=== PATIENT | female | born 1955 | race Caucasian/White ===

== ENCOUNTER 2019-02-06 06:26 | Day surgery (SDC) | payer MEDICARE, OTHER, SELFPAY ==
--- NOTE | 2019-02-06 | TONS_PTH ---
PATIENT: AJ BARRON LOC: [facility] [place] U#:[id number] AGE/SX: 63/F ROOM: RE02/06/[address]: Dr. Stewart Carranza MD : 1955 BED: DIS: 02/06/2019 SPEC #: [id number] RECD: 02/06/19 09:09 STATUS: AMARI VIRK #: [id number] SAMMI: 02/06/19 00:[address]: Stewart Carranza DEPT: SURGICAL PATHOLOGY RECD BY: [place] ENTERED: 02/06/19 10:25 SP TYPE: TONSILS OTHR DR: No Primary Care Phys Tissues: Tonsil, NOS Procedures: Frozen Section (charge) Surgery Specimen Level III HEADER OPERATION: Tonsillectomy PRE-OP DIAGNOSIS: Benign neoplasm of tonsil; dysphagia TISSUE SUBMITTED: A - Left tonsil for FS at 0902, B - Right tonsil FROZEN SECTION DIAGNOSIS A. Left tonsil, tonsillectomy: Benign lymphoid hyperplasia. AM:michel 02/06/19 MICROSCOPIC DIAGNOSIS A. Left tonsil, tonsillectomy: Benign lymphoid follicular hyperplasia. Organisms consistent with actinomyces. See comment. B. Right tonsil, tonsillectomy: Benign lymphoid hyperplasia. AM:michel 02/10/19 COMMENT A. Flow cytometry analysis does not reveal immunophenotypic evidence of a lymphoproliferative disorder. The complete flow analysis is viewable in EMR. MICROSCOPIC DESCRIPTION Slides are reviewed. GROSS DESCRIPTION A - Received fresh for frozen section consultation labeled with the patient's name is a specimen designated left tonsil. The specimen consists of a tonsil measuring 3.4 x 1.6 x 1.8 cm and weighing 6.3 cm. The surgical margin is inked and the specimen is serially sectioned to reveal normal tonsillar architecture. No mass lesions are identified. A parts counter representative section is submitted for frozen section consultation in one block. The remainder of the specimen is submitted in its entirety in cassettes 2-4. / AM: 02/06/19 B - Received in fixative is one container labeled with the patient's name and designated right tonsil. The specimen consists of a tonsil that weighs 3.4 gm and measures 3 x 2 x 1.5 cm. The external surface is pink-martinez, smooth, glistening and somewhat lobulated. Focally it is hemorrhagic, granular and bears cautery artifact. Serial cross sections through the tonsil reveal normal tonsillar architecture. The specimen is serially sectioned and totally submitted in two cassettes. / AM: 02/09/19 TC:5 CPT: 89385 x2, 62419
--- NOTE | 2019-02-06 06:39 | EKG12_ITS ---
Test Reason : PRE OP Blood Pressure : / mmHG Vent. Rate : 062 BPM Atrial Rate : 062 BPM P-R Int : 146 ms QRS Dur : 074 ms QT Int : 398 ms P-R-T Axes : 073 057 041 degrees QTc Int : 403 ms Sinus rhythm with marked sinus arrhythmia Low voltage QRS Borderline ECG Confirmed by GENO LAWRENCE, RAMON ([id number]), technical editor CHRIS PACHECO ([id number]) on 02/09/2019 3:12:41 PM Referred By: Stewart Carranza Confirmed By:RAMON LORA MD
[2019-02-06 06:50] VITALS: BP 128/65; PULSE 62; RESP 18; TEMP 37.1; O2SAT 96; BMI 35.7
[2019-02-06 07:09] LABS: Hematocrit 42.5 % (37-47); Hemoglobin 14.3 g/dl (12.0-15.0); Mean Corp Hgb Conc 33.6 g/gl (32-36); Mean Corpuscular Hgb 29.1 pg (27.0-32.0); Mean Corpuscular Volume 86.4 fL (81-99); Platelet Count 265 K/mm3 (150-450); RBC Distribution Width CV 13.5 % (11.6-14.6); RBC Distribution Width SD 42.5 fl (35.1-43.9); Red Blood Count 4.92 M/mm3 (4.2-5.4); Scan Indicated on CBC? Y/N NO; White Blood Count 8.4 K/mm3 (4.4-11.0)
[2019-02-06 07:23] LABS: Anion Gap 6 (5-15); BUN 11 mg/dL (7-18); BUN/Creat Ratio 13.3 RATIO (10-20); Chloride 107 mmol/L (98-107); Creatinine, Serum 0.83 mg/dL (0.55-1.02); EST Glomerular Filtration Rate 73 mL/min (>60); Est Glom Filt Rate - Afr Amer 89 mL/min (>60); Estimated Creatinine Clearance 58.35 ml/min; Glucose 130 mg/dL (74-106); Potassium 3.9 mmol/L (3.5-5.1); Sodium Level 142 mmol/L (136-145)
--- NOTE | 2019-02-06 09:27 | OP.PCM_ITS ---
Problem List (1) Benign neoplasm of tonsil Status: Acute (2) Dysphagia Status: Acute Qualifiers: Dysphagia type: unspecified Qualified Code(s): R13.10 - Dysphagia, unspecified Report of Operation Date of Procedure: 02/06/19 Pre-Operative Diagnosis: Left tonsillar asymmetry, dysphagia, history of tobacco use Post-Operative Diagnosis: Same Surgery/Procedure Performed:: Tonsillectomy Description of Surgical Findings:: Melissa is a 63-year-old smoker who presents with left tonsillar asymmetry which she reports is been progressive and causing significant dysphagia. Examination showed a significant left-sided tonsillar asymmetry and given her tobacco use history excision for definitive evaluation for possible malignant process was advised. The risks, alternatives, potential complications, and benefits were discussed at length and any questions answered to the patient and/or caregiver's satisfaction. Witnessed informed consent was obtained in the office, and the patient and/or caregiver was agreeable to proceed. Procedure went as follows: The patient was identified in the preoperative holding, brought to the operating room, was placed under general anesthesia and intubated. When appropriate anesthesia was obtained, the head of bed was rotated and the patient prepped and draped in usual sterile fashion. A Kelli Valdo mouthgag was then placed and the patient suspended from the Pike stand. The oral cavity was examined and noted to have a symmetrical tonsillar hypertr ophy. Beginning on the right side, the right tonsil was then grasped with a curved tenaculum and dissected from the underlying capsule with monopolar cautery. This was then sent as specimen. Similar procedure was then completed on the contralateral side. This left tonsil was noted to be twice to 3 times the size of the contralateral tonsil and was sent for frozen section evaluation revealed no occult malignancy with the specimen sent out for flow cytometry for possible lymphomatous involvement. The oral and nasal cavities were then irrigated with saline solution. An NG tube was then placed to decompress the stomach. The patient was then returned to anesthesia, revived and extubated having tolerated the procedure well. Type of Anesthesia:: General Anesthesiologist: Marvin Bowers Special Medications: none Specimen's removed: bilateral tonsils Drains: none Estimated Blood Loss (mL): 0 mL Fluids Replaced: 900 mL Grafts/Implants Used: none - Complications none - Admit VTE Documentation VTE Present on Admission: No VTE Mechan Device Prophylaxis: SCD's VTE Pharm Prophylaxis ordered?: No
--- NOTE | 2019-02-06 09:28 | DCINST_ITS ---
Discharge Diet: No Restrictions Discharge Activity: Return to Normal Activity Call your doctor if your incision/area has: Sudden Increased Bleeding Call your doctor if you observe: Fever of 101 or Higher, Uncontrolled pain Allergies/Adverse Reactions: Allergies ibuprofen [From Motrin] Allergy (Verified 02/06/19 06:50) Hives Medications to take at Discharge Pseudoephedrine HCl [Sudafed] 30 mg PO DAILY PRN 01/30/19 Primary Care Physician: Care Physician,No Primary [Primary Care Provider] - Test Results: Test results from this visit will be discussed in further detail at your follow- up appointment, if applicable. Please Follow Up With: Stewart Carranza MD When: 2 weeks
[2019-02-06 09:32] VITALS: BP 128/65; BP 139/67; PULSE 71; RESP 16; TEMP 36.4; O2SAT 91
[2019-02-06 09:45] VITALS: BP 125/55; BP 128/65; PULSE 71; RESP 14; O2SAT 92
[2019-02-06 10:00] VITALS: BP 115/61; BP 128/65; PULSE 71; RESP 16; O2SAT 94
[2019-02-06 10:11] VITALS: BP 108/65; BP 128/65; PULSE 70; RESP 16; TEMP 36.3; O2SAT 94
[2019-02-06] MEDS: Lactated Ringers 1,000 ML 120 ML IV (12:10)
[2019-02-06] MEDS: Acetaminophen 160 MG/5 ML UDC 500 MG PO (12:11)
[2019-02-06 13:20] VITALS: BP 121/53; BP 128/65; PULSE 68; RESP 18; TEMP 36.4; O2SAT 93
== END 2019-02-06 13:23 | disposition home or self-care (01) ==
LOC: SDC 06:28 → AC 06:30
PROVIDERS: Referring Provider Otolaryngology; Visit Provider Otolaryngology
PROC: (CPT 42826; principal; 2019-02-06 08:10)
DX: D10.4 Benign neoplasm of tonsil (principal); J35.1 Hypertrophy of tonsils; R13.10 Dysphagia, unspecified; H92.02 Otalgia, left ear; Z87.891 Personal history of nicotine dependence
CPT/HCPCS: 00170; 42826; 36415; 80048; 85027; 88304; 88331; 93005; J7120; J2405